=== PATIENT | male | born 1960 | race Hispanic/Latino ===

== ENCOUNTER 2018-03-07 09:15 | Emergency (ER) | payer SELFPAY ==
[2018-03-07] MEDS ORDERED: NACL 0.9% 1000 ML 1,000 ML IV ONE (09:44)
[2018-03-07] MEDS ORDERED: ZOFRAN IV ONE (10:00)
[2018-03-07] MEDS ORDERED: MORPHINE IV ONE (10:00)
--- NOTE | 2018-03-07 10:07 | Emergency Department Report ---
ED Abdominal Pain HPI - General Chief Complaint: Abdominal Pain Stated Complaint: STOMACH PAIN Time Seen by Provider: 03/07/18 09:48 Source: patient Mode of arrival: Ambulatory Limitations: No Limitations - History of Present Illness Initial Comments: 57-year-old male with epigastric pain began approximately 5 hours ago. Patient reports sharp pain, nonradiating. States onset of nausea and vomiting after pain began. Reports loose stool 2 days ago. Also reports EtOH use 2 days ago. Denies fever, shortness of breath. MD Complaint: abdominal pain -: hour(s) (5) Location: epigastric Radiation: none Migration to: no migration Severity: moderate Severity scale (0 -10): 9 Quality: sharp Consistency: constant Improves With: nothing Worsens With: nothing Associated Symptoms: nausea, vomiting. denies: diarrhea, fever, constipation - Related Data Previous Rx's Medication Instructions Recorded Last Taken Type Dicyclomine [Bentyl] 20 mg PO QID PRN #20 tablet 03/07/18 Unknown Rx Esomeprazole Magnesium [Nexium] 40 mg PO DAILY #30 capsule. 03/07/18 Unknown Rx Promethazine [Phenergan TAB] 25 mg PO Q6HR PRN #20 tab 03/07/18 Unknown Rx Allergies Allergy/AdvReac Type Severity Reaction Status Date / Time No Known Allergies Allergy Unverified 03/07/18 09:44 ED Review of Systems ROS: Stated complaint: STOMACH PAIN Other details as noted in HPI Comment: All other systems reviewed and negative Constitutional: denies: chills, fever Respiratory: denies: shortness of breath Gastrointestinal: abdominal pain, nausea, vomiting. denies: diarrhea, constipation ED Past Medical Hx - Past Medical History Previous Medical History?: Yes Hx Hypertension: Yes Hx Diabetes: Yes Additional medical history: spinal stenosis - Surgical History Past Surgical History?: No - Social History Smoking Status: Current Every Day Smoker Substance Use Type: Alcohol - Medications Home Medications: Home Medications Medication Instructions Recorded Confirmed Last Taken Type Dicyclomine [Bentyl] 20 mg PO QID PRN #20 tablet 03/07/18 Unknown Rx Esomeprazole Magnesium [Nexium] 40 mg PO DAILY #30 capsule. 03/07/18 Unknown Rx Promethazine [Phenergan TAB] 25 mg PO Q6HR PRN #20 tab 03/07/18 Unknown Rx ED Physical Exam - General Limitations: No Limitations General appearance: alert, other (appears slightly uncomfortable) - Head Head exam: Present: atraumatic, normocephalic - Eye Eye exam: Present: normal appearance - ENT ENT exam: Present: mucous membranes moist - Neck Neck exam: Present: normal inspection - Respiratory Respiratory exam: Present: normal lung sounds bilaterally. Absent: respiratory distress - Cardiovascular Cardiovascular Exam: Present: regular rate, normal rhythm - GI/Abdominal GI/Abdominal exam: Present: soft, tenderness (moderate epigastric tenderness present; no RUQ tenderness). Absent: distended, guarding, rebound - Extremities Exam Extremities exam: Present: normal inspection - Neurological Exam Neurological exam: Present: alert, oriented X3 - Psychiatric Psychiatric exam: Present: normal affect, normal mood - Skin Skin exam: Present: warm, dry, intact, normal color ED Course Vital Signs 03/07/18 03/07/18 03/07/18 09:27 09:32 15:51 Temperature 98.0 F 98 F Pulse Rate 83 83 75 Respiratory 20 20 18 Rate Blood Pressure 157/118 Blood Pressure 157/118 [Left] Blood Pressure 188/114 184/86 [Right] O2 Sat by Pulse 100 100 100 Oximetry - Reevaluation(s) Reevaluation #1: 03/07/18 13:25 Pt reports pain greatly improved. Informed him that we will obtain US of gallbladder based on CT results. Pt agreeable. ED Medical Decision Making - Lab Data Result diagrams: 03/07/18 10:23 03/07/18 10:23 - EKG Data -: EKG Interpreted by [facility] EKG shows normal: sinus rhythm, axis, intervals, QRS complexes Rate: normal - EKG Data Interpretation: other (lateral T wave inversions, abnormal EKG) - Radiology Data Radiology results: report reviewed - Medical Decision Making 57-year-old male presented with nausea and vomiting, epigastric pain. Epigastric tenderness on exam. Labs show mild elevation in WBCs, patient afebrile. EKG shows some T-wave inversions however troponin negative 2. CT showed gastritis and possible cholecystitis. Ultrasound was done to further evaluate gallbladder. Ultrasound showed cholelithiasis without evidence of cholecystitis. Pain likely due to the gastritis. Pt reports pain relieved with morphine. Will discharge at this time. Will give her follow-up information for GI and general surgery. - Differential Diagnosis pancreatitis, bowel obstruction, gastritis Critical care attestation.: If time is entered above; I have spent that time in minutes in the direct care of this critically ill patient, excluding procedure time. ED Disposition Clinical Impression: Gastritis, Cholelithiasis Disposition: TO HOME OR SELFCARE Is pt being admited?: No Condition: Stable Instructions: Gastritis (ED), Biliary Colic (ED), Diet for Ulcers and Gastritis (ED) Prescriptions: Dicyclomine [Bentyl] 20 mg PO QID PRN #20 tablet PRN Reason: abdominal pain Esomeprazole Magnesium [Nexium] 40 mg PO DAILY #30 capsule. Promethazine [Phenergan TAB] 25 mg PO Q6HR PRN #20 tab PRN Reason: Nausea Referrals: PRIMARY CARE, [Primary Care Provider] - 3-5 Days LUKAS BENZ DO [Staff Physician] - 3-5 Days [facility] [Provider Group] - 3-5 Days Time of Disposition: 15:02
[2018-03-07 10:33] LABS: Basophils # (Auto) 0.1 K/mm3 (0.0-0.1); Basophils % (Auto) 0.5 % (0.0-1.8); Eosinophils # (Auto) 0.1 K/mm3 (0.0-0.4); Eosinophils % (Auto) 0.5 % (0.0-4.3); Hematocrit 46.6 % (35.5-45.6); Hemoglobin 15.5 gm/dl (11.8-15.2); Lymphocytes # (Auto) 1.5 K/mm3 (1.2-5.4); Lymphocytes % (Auto) 10.3 % (13.4-35.0); Mean Corpuscular HGB Conc 33 % (32-34); Mean Corpuscular Hemoglobin 27 pg (28-32); Mean Corpuscular Volume 82 fl (84-94); Monocytes # (Auto) 0.7 K/mm3 (0.0-0.8); Monocytes % (Auto) 4.8 % (0.0-7.3); Platelet Count 214 K/mm3 (140-440); Red Cell Distribution Width 15.1 % (13.2-15.2)
[2018-03-07 10:53] LABS: Lipase 29 units/L (13-60)
[2018-03-07 10:58] LABS: Alanine Aminotransferase 11 units/L (7-56); Albumin 4.4 g/dL (3.9-5); BUN/Creatinine Ratio 15; Blood Urea Nitrogen 18 mg/dL (9-20); Calcium 9.9 mg/dL (8.4-10.2); Hemolysis Index 22
--- NOTE | 2018-03-07 12:58 | Cat Scan Report ---
FINAL REPORT EXAM: CT ABDOMEN PELVIS W CON HISTORY: abd pain, N/V TECHNIQUE: CT abdomen and pelvis performed. Images extend from diaphragm to pubic symphysis. 100 cc Omnipaque 350 IV was administered. Axial images and coronal and sagittal reformatted images were obtained. PRIORS: None. FINDINGS: There are some calcifications in the gallbladder wall. The wall also appears thickened. I cannot confirm cholelithiasis. There is wall thickening involving the stomach, especially the antrum. This is worrisome for gastritis. There is a 13 mm right adrenal gland nodule which is probably a benign adenoma. The visualized liver, spleen, pancreas, left adrenal glands and kidneys demonstrate no significant abnormalities. There is no abdominal aortic aneurysm. There is no evidence of intestinal obstruction. The appendix is normal. There are no abnormal fluid collections seen. There is no free intraperitoneal air. There is diffuse bladder wall thickening. Correlate for possible cystitis. IMPRESSION: Abnormal appearing gallbladder with wall thickening and wall calcification. There may be some surrounding inflammation. I cannot confirm cholelithiasis, however There findings concerning for gastritis. Diffuse bladder wall thickening could reflect cystitis.
[2018-03-07 13:24] LABS: Bilirubin,Urine NEG (Negative); Blood,Urine NEG (Negative); Color,Urine Straw (Yellow); Protein,Urine <15 mg/dL mg/dL (Negative); Urobilinogen,Urine < 2.0 mg/dL (<2.0)
--- NOTE | 2018-03-07 14:51 | Ultrasound Report ---
FINAL REPORT PROCEDURE: US ABDOMEN LIMITED TECHNIQUE: Real-time sonography was performed of the right upper quadrant with image documentation. CPT 78356 HISTORY: epigastric pain, please evaluate gallbladder COMPARISON: CT scan abdomen and pelvis 03/07/2018 FINDINGS: Multiple echogenic foci are filling a large portion the gallbladder consistent with cholelithiasis. Gallbladder wall is not thickened only measuring 1.5 millimeters. The gallbladder was not tender to palpation. Common bile duct is normal caliber measuring 4.1 millimeters. The intrahepatic ducts are not distended. Liver echogenicity appears normal. No masses are identified. Right kidney showed no abnormalities measuring 9.4 centimeters greatest length. Visualized portions of the pancreas are unremarkable. No ascites is seen. Visualized portion of the inferior vena cava and abdominal aorta unremarkable. The entire abdominal aorta and inferior vena cava are not included on this exam.. IMPRESSION: Cholelithiasis.
[2018-03-07 15:52] VITALS: BP 184/86
== END 2018-03-07 15:51 | disposition home or self-care (01) ==
LOC: ED 09:15
DX: K29.70 Gastritis, unspecified, without bleeding (principal); K80.20 Calculus of gallbladder without cholecystitis without obstruction; I10 Essential (primary) hypertension; E11.9 Type 2 diabetes mellitus without complications; F17.200 Nicotine dependence, unspecified, uncomplicated
CPT/HCPCS: 36415; 74177; 76705; 80053; 81001; 83690; 84484; 85025; 93005; 93010; 96374; 96375; 99284; J2270; J2405; J7030; Q9967